=== PATIENT | female | born 1995 | race Caucasian/White ===

== ENCOUNTER 2018-08-13 14:06 | Emergency (ER) | payer BC ==
[2018-08-13 14:22] LABS: Bilirubin Negative (Negative); Blood, Urine Large (Negative); Glucose, Urine (Dipstick) Negative (Negative); Leukocyte Large (Negative); Nitrite Negative (Negative); Protein, Urine (Dipstick) 100 mg/dL (Neg-Trace); Urobilinogen 0.2 mg/dL (Less than 2)
[2018-08-13 14:23] LABS: Clarity Cloudy (Clear); Pregnancy Test - Urine (BHCG) Negative (Negative)
[2018-08-13 14:24] LABS: Pregu Control Background? CLEAR/WHITE (CLR/WHITE); Pregu Control Bar Appear? YES (CONTROL BAR); Specific Gravity 1.025 (1.002-1.036)
[2018-08-13 14:27] LABS: RBC/HPF Greater than 50 HPF (0-3); WBC/HPF Greater Than 50 HPF (0-3)
[2018-08-13 14:28] LABS: Bacteria/HPF Rare-Few HPF (None Seen)
== END 2018-08-13 14:49 | disposition home or self-care (01) ==
LOC: MADERS 14:06
DX: N39.0 Urinary tract infection, site not specified (principal)
CPT/HCPCS: 81003; 81015; 81025; 87077; 87086; 87186; 99283